=== PATIENT | male | born 1975 | race Caucasian/White ===

== ENCOUNTER 2017-09-18 15:51 | Emergency (ER) | payer BC ==
[~2017-09-18] VITALS: Ht 180.3 cm; Wt 95.0 kg
[~2017-09-18 15:51] MED LIST: CRTOTS OP
[2017-09-18 15:57] VITALS: TEMP 37.5; Ht 180.3 cm; Wt 95.0 kg
[2017-09-18] MEDS ORDERED: ONDANSETRON INJ 2 MG/ML 2 ML VIAL IV STA (16:35)
[2017-09-18] MEDS ORDERED: SODIUM CHLORIDE 0.9% 1000ML 1,000 ML IV STA (16:35)
--- NOTE | 2017-09-18 16:51 | EMERGENCY ROOM VISIT NOTE ---
History Report prepared by Ac: Delon Fernandez Under the Supervision of: Dr. Elaine Trevino M.D. First contact with patient: 16:21 Chief Complaint: ABDOMINAL PAIN Stated Complaint: STOMACH PAIN History of Present Illness The patient is a 42 year old male who presents to the Emergency Room with complaints of intermittent abdominal pain that started 24 hours ago. He says that the pain was on the left side, but has since moved to the right, and there is no pain currently. He rates his worst pain as a 3 or 4 out of 10 in severity , and the pain made him have trouble sleeping last night. The patient notes that nothing makes the pain worse. The patient denies any vomiting or diarrhea. He says that he ate around 2 hours ago, but had not eaten anything before that all day. He adds that his urine is looking a bit dark. The patient notes no abdominal surgeries. He says that he has not had a bowel movement in the past day or so, and he normally has regular bowel movements. The patient says that he has never had a colonoscopy, and he has no chronic medical problems. He notes that he has about 3 drinks of alcohol per day. Source of History: patient Onset: 24 hours ago Position: abdomen Symptom Intensity: at worst a 3 or 4 out of 10 Timing: intermittent Associated Symptoms: No vomiting, No diarrhea Note: Associated symptoms: Urine looking a bit dark. Review of Systems See HPI for pertinent positives & negatives. A total of 10 systems reviewed and were otherwise negative. Past Medical & Surgical Medical Problems: (1) No chronic diseases present Family History Cancer Heart disease Hypertension Social History Smoking Status: Never Smoker Alcohol Use: other (3 drinks per day) Marital Status: Housing Status: lives with significant other Occupation Status: employed Current/Historical Medications No Active Prescriptions or Reported Meds Allergies Coded Allergies: No Known Allergies (Unverified , 05/30/11) Physical Exam Vital Signs Date Time Temp Pulse Resp B/P (MAP) Pulse Ox O2 Delivery O2 Flow Rate FiO2 09/18/17 19:42 88 16 112/73 97 09/18/17 18:36 90 18 107/59 96 Room Air 09/18/17 15:57 37.5 100 20 101/55 95 Room Air Physical Exam Vital signs reviewed. General: Well-appearing 42 year old male, in no significant distress. HEENT: No scleral icterus, PERRLA, neck supple. Atraumatic. Cardiovascular: Regular rate and rhythm, no extra sounds. Pulmonary: Clear to auscultation bilaterally, normal work of breathing. Abdomen: Tender to bilateral lower quadrants, positive guarding. Soft, nondistended, positive bowel sounds. Musculoskeletal: Atraumatic, no peripheral edema. Neurologic: Patient awake alert and oriented x 3 Skin: Warm, dry, no rash Medical Decision & Procedures ER Provider Diagnostic Interpretation: CT results as stated below per my review and radiologist interpretation: CT OF THE ABDOMEN AND PELVIS WITH CONTRAST CLINICAL HISTORY: Lower abdominal pain. COMPARISON STUDY: None. TECHNIQUE: Following IV administration of 92 mL of Optiray-320, axial images of the abdomen and pelvis were obtained from the lung bases to the proximal femurs. Images were reviewed in the axial, sagittal, and coronal planes. IV contrast was administered without complication. A dose lowering technique was utilized adhering to the principles of ALARA. CT DOSE: 880.05 mGycm FINDINGS: The liver, spleen, adrenal glands and kidneys are normal. There is no hydronephrosis. There is no biliary or pancreatic ductal dilatation. The pancreatic neck, body and tail are not visualized. This suggests agenesis of the dorsal pancreas. The caliber of small and large bowel is normal. The appendix is normal. There is extensive left colon diverticulosis. There is circumferential moderate wall thickening of the proximal sigmoid colon with moderate pericolonic infiltration and fluid. This represents acute diverticulitis. There is no free air or abscess. There is trace fluid within the pelvis. There is no lymphadenopathy. No suspicious skeletal lesions are present. IMPRESSION: 1. Acute sigmoid diverticulitis. Moderate pericolonic infiltration and a small amount of fluid with moderate sigmoid colon wall thickening. No free air or abscess. 2. 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 Electronically signed by: Hossein Mauro M.D. 09/18/2017 7:02 PM Dictated Date/Time: 09/18/2017 6:57 PM Laboratory Results 09/18/17 16:10 Red Blood Count 4.29, Mean Corpuscular Volume 84.8, Mean Corpuscular Hemoglobin 31.0, Mean Corpuscular Hemoglobin Concent 36.5, Mean Platelet Volume 10.1, Neutrophils (%) (Auto) 84.0, Lymphocytes (%) (Auto) 7.6, Monocytes (%) (Auto) 7.9, Eosinophils (%) (Auto) 0.2, Basophils (%) (Auto) 0.1, Neutrophils # (Auto) 10.24, Lymphocytes # (Auto) 0.93, Monocytes # (Auto) 0.96, Eosinophils # (Auto) 0.03, Basophils # (Auto) 0.01 09/18/17 16:10 Test 09/18/17 00:00 09/18/17 16:10 09/18/17 17:08 Urine Color DK YELLOW Urine Appearance CLEAR (CLEAR) Urine pH 7.0 (4.5-7.5) Urine Specific [place] 1.022 (1.000-1.030) Urine Protein NEG (NEG) Urine Glucose (UA) NEG (NEG) Urine Ketones TRACE (NEG) Urine Occult Blood NEG (NEG) Urine Nitrite NEG (NEG) Urine Bilirubin NEG (NEG) Urine Urobilinogen NEG (NEG) Urine Leukocyte Esterase NEG (NEG) White Blood Count 12.20 K/uL (4.8-10.8) Red Blood Count 4.29 M/uL (4.7-6.1) Hemoglobin 13.3 g/dL (14.0-18.0) Hematocrit 36.4 % (42-52) Mean Corpuscular Volume 84.8 fL (80-100) Mean Corpuscular Hemoglobin 31.0 pg (25-34) Mean Corpuscular Hemoglobin Concent 36.5 g/dl (32-36) Platelet Count 273 K/uL (130-400) Mean Platelet Volume 10.1 fL (7.4-10.4) Neutrophils (%) (Auto) 84.0 % Lymphocytes (%) (Auto) 7.6 % Monocytes (%) (Auto) 7.9 % Eosinophils (%) (Auto) 0.2 % Basophils (%) (Auto) 0.1 % Neutrophils # (Auto) 10.24 K/uL (1.4-6.5) Lymphocytes # (Auto) 0.93 K/uL (1.2-3.4) Monocytes # (Auto) 0.96 K/uL (0.11-0.59) Eosinophils # (Auto) 0.03 K/uL (0-0.5) Basophils # (Auto) 0.01 K/uL (0-0.2) RDW Standard Deviation 38.7 fL (36.4-46.3) RDW Coefficient of Variation 12.6 % (11.5-14.5) Immature Granulocyte % (Auto) 0.2 % Immature Granulocyte # (Auto) 0.03 K/uL (0.00-0.02) Anion Gap 6.0 mmol/L (3-11) Est Creatinine Clear Calc Drug Dose 115.5 ml/min Estimated GFR () 109.8 Estimated GFR (Non- 94.7 BUN/Creatinine Ratio 13.2 (10-20) Calcium Level 8.7 mg/dl (8.5-10.1) Total Bilirubin 0.8 mg/dl (0.2-1) Direct Bilirubin 0.2 mg/dl (0-0.2) Aspartate Amino Transf (AST/SGOT) 9 U/L (15-37) Alanine Aminotransferase (ALT/SGPT) 26 U/L (12-78) Alkaline Phosphatase 71 U/L (45-117) Total Protein 7.5 gm/dl (6.4-8.2) Albumin 3.9 gm/dl (3.4-5.0) Lipase 78 U/L (73-393) Total Creatine Kinase 78 U/L (39-308) Laboratory results per my review. Medications Administered Medications (Trade) Dose Ordered Sig/Ashleigh Route Start Time Stop Time Status Last Admin Dose Admin Sodium Chloride 1,000 ml @ 999 mls/hr Q1H1M STAT IV 09/18/17 16:35 09/18/17 17:35 DC 09/18/17 18:31 999 MLS/HR Ondansetron HCl (Zofran Inj) 4 mg NOW STAT IV 09/18/17 16:35 09/18/17 16:37 DC 09/18/17 18:30 4 MG Amoxicillin/ Clavulanate Potassium (Augmentin Tab) 875 mg ONE ONCE PO 09/18/17 19:30 09/18/17 19:31 DC 09/18/17 19:33 875 MG Acetaminophen/ Hydrocodone Bitart (Brandywine 5/325 Tab) 1 tab NOW STAT PO 09/18/17 19:19 09/18/17 19:21 DC 09/18/17 19:34 1 TAB Acetaminophen/ Hydrocodone Bitart (Br[place]wine 5/325mg Home Pack) 1 homepack UD ONCE PO 09/18/17 19:45 09/18/17 19:46 DC 09/18/17 19:53 1 [facility] ED Course 1635: Ordered Zofran Inj 4 mg IV, NSS 1000 ml @ 999 mls/hr IV. 164: Past medical records reviewed. The patient was evaluated in room C4. A complete history and physical examination was performed. 1700: Ordered Morphine Sulfate Inj 4 mg IV. 1918: Ordered Brandywine 5/325 Tab 1 tab PO. 1927: Upon reevaluation, the patient appeared to have improvement of his symptoms. I discussed findings with him. He verbalized agreement of the treatment plan. He was discharged home. 1929: Ordered Augmentin Tab 875 mg PO. Medical Decision Differential diagnosis: Etiologies such as appendicitis, diverticulitis, PUD, biliary pathology, UTI, pancreatitis, obstruction, mesenteric ischemia, aortic pathology, infections, inflammatory bowel disease, renal colic, as well as others were entertained. This patient was evaluated and appeared to be in no significant distress. IV access was obtained and laboratory work was drawn. Patient was hydrated with normal saline solution and IV Zofran for his discomfort. The patient declined the IV morphine that was ordered. Laboratory work reveals a mildly elevated white blood cell count. CT scan abdomen and pelvis is consistent with an acute diverticulitis. There is no evidence of abscess or perforation. The patient does drink 3 alcoholic drinks a day. Flagyl was felt not to be the best option for this patient. He was started on Augmentin 875 mg twice a day for 7 days. He will follow-up with his PCP and likely gastroenterology secondarily. He will return to the ER for worsening of symptoms or any medical concerns. Medication Reconcilliation Current Medication List: was personally reviewed by me Blood Pressure Screening Patient's blood pressure: Normal blood pressure Impression Primary Impression: Diverticulitis Scribe Attestation The scribe's documentation has been prepared under my direction and personally reviewed by me in its entirety. I confirm that the note above accurately reflects all work, treatment, procedures, and medical decision making performed by me. Departure Information Dispostion Home / Self-Care Prescriptions No Active Prescriptions or Reported Meds Referrals Kam Gamez III, CRNP (PCP) Forms Call Back Authorization, HOME CARE DOCUMENTATION FORM, IMPORTANT VISIT INFORMATION Patient Instructions My [facility] Additional Instructions Diagnosis: Diverticulitis Drink plenty of clear fluids. Low fiber diet for 1 week. Augmentin 875 mg twice daily for 7 days. Follow up with PCP and seek GI referral for colonoscopy once improved. Brandywine 1 tab every 6 hours as needed for pain, do not drive or take tylenol with this medication. Tylenol 650 mg every 6 hours as needed for pain thereafter. Return to the ED for worsening of symptoms or any medical concerns.
[2017-09-18 16:58] LABS: HEMATOCRIT 36.4 % (42-52); MEAN CELL VOLUME 84.8 fL (80-100); MEAN CORPUSCULAR HGB CONC 36.5 g/dl (32-36); MEAN PLATELET VOLUME 10.1 fL (7.4-10.4); PLATELET COUNT 273 K/uL (130-400); RED BLOOD COUNT 4.29 M/uL (4.7-6.1)
[2017-09-18] MEDS ORDERED: MoRPHine SULFATE 4 MG/ML 1 ML CARP\\VIAL IV STA (17:01)
[2017-09-18 17:10] LABS: BUN/CREATININE RATIO 13.2 (10-20); CALCIUM 8.7 mg/dl (8.5-10.1); CREATININE 0.98 mg/dl (0.60-1.40); POTASSIUM 3.7 mmol/L (3.5-5.1)
[2017-09-18 17:15] LABS: BASO % 0.1 %; BASO ABS # 0.01 K/uL (0-0.2); COMPLETE YES; EOS % 0.2 %; IG% 0.2 %; LYMPH % 7.6 %; LYMPH ABS # 0.93 K/uL (1.2-3.4); MONO % 7.9 %
[2017-09-18] MEDS ORDERED: OPTIRAY 320 IV PRN (17:15)
[2017-09-18 17:57] LABS: URINE APPEARANCE CLEAR (CLEAR); URINE BILIRUBIN NEG (NEG); URINE COLOR DK YELLOW; URINE NITRITE NEG (NEG); URINE SPECIFIC GRAVITY 1.022 (1.000-1.030); UROBILINOGEN NEG (NEG); ZZUR CULT IF INDIC CLEAN CATCH NO
[2017-09-18 18:01] LABS: MANUAL MICROSCOPIC REQUIRED? NO; REVIEW REQ? NO
--- NOTE | 2017-09-18 19:03 | DIAGNOSTIC IMAGING REPORT ---
CT OF THE ABDOMEN AND PELVIS WITH CONTRAST CLINICAL HISTORY: Lower abdominal pain. COMPARISON STUDY: None. TECHNIQUE: Following IV administration of 92 mL of Optiray-320, axial images of the abdomen and pelvis were obtained from the lung bases to the proximal femurs. Images were reviewed in the axial, sagittal, and coronal planes. IV contrast was administered without complication. A dose lowering technique was utilized adhering to the principles of ALARA. CT DOSE: 880.05 mGycm FINDINGS: The liver, spleen, adrenal glands and kidneys are normal. There is no hydronephrosis. There is no biliary or pancreatic ductal dilatation. The pancreatic neck, body and tail are not visualized. This suggests agenesis of the dorsal pancreas. The caliber of small and large bowel is normal. The appendix is normal. There is extensive left colon diverticulosis. There is circumferential moderate wall thickening of the proximal sigmoid colon with moderate pericolonic infiltration and fluid. This represents acute diverticulitis. There is no free air or abscess. There is trace fluid within the pelvis. There is no lymphadenopathy. No suspicious skeletal lesions are present. IMPRESSION: 1. Acute sigmoid diverticulitis. Moderate pericolonic infiltration and a small amount of fluid with moderate sigmoid colon wall thickening. No free air or abscess. 2. 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 Electronically signed by: Hossein Mauro M.D. 09/18/2017 7:02 PM Dictated Date/Time: 09/18/2017 6:57 PM
[2017-09-18] MEDS ORDERED: HYDROCODONE/ACETAMOPHEN 5/325MG TAB PO STA (19:19)
[2017-09-18] MEDS ORDERED: AMOXICILLIN/CLAVULANATE TAB 875 MG TAB PO ONE (19:30)
[2017-09-18 19:42] VITALS: BP 112/73; PULSE 88; O2SAT 97
[2017-09-18] MEDS ORDERED: NORCO 5/325MG HOME PACK PO ONE (19:45)
== END 2017-09-18 19:43 | disposition home or self-care (01) ==
LOC: C.EDB 15:53 → C.EDC 19:43
DX: K57.33 Diverticulitis of large intestine without perforation or abscess with bleeding (principal); Z80.9 Family history of malignant neoplasm, unspecified; Z82.49 Family history of ischemic heart disease and other diseases of the circulatory system

== ENCOUNTER → 2017-09-22 | Outpatient (CLI) | payer BC ==
[2017-09-22 13:59] LABS: ALT/SGPT 30 U/L (12-78); AST/SGOT 11 U/L (15-37); BLOOD UREA NITROGEN 15 mg/dl (7-18); CALCIUM 8.9 mg/dl (8.5-10.1); CARBON DIOXIDE 27 mmol/L (21-32); CHLORIDE 105 mmol/L (98-107); CREATININE 0.76 mg/dl (0.60-1.40); GLUCOSE 97 mg/dl (70-99); POTASSIUM 4.1 mmol/L (3.5-5.1); SODIUM 139 mmol/L (136-145)
[2017-09-22 14:02] LABS: ALB/GLOB RATIO 0.9 (0.9-2); ALKALINE PHOSPHATASE 60 U/L (45-117); CHOLESTEROL 183 mg/dl (0-200); CHOLESTEROL/HDL RATIO 4.2; HDL CHOLESTEROL 44 mg/dl; LDL CHOLESTEROL CALCULATED 124 mg/dl; TRIGLYCERIDES 77 mg/dl (0-150); VERY LOW DENSITY LIPOPROT CALC 15 mg/dl
== END | disposition home or self-care (01) ==
LOC: C.LAB1850 11:51
PROVIDERS: ATTEND Nurse Practitioner Family
DX: Z13.220 Encounter for screening for lipoid disorders (principal)

== ENCOUNTER → 2018-04-16 | Outpatient (CLI) | payer BC | END | disposition home or self-care (01) | LOC: C.LABSPEC 11:09 | PROVIDERS: ATTEND Nurse Practitioner Family | DX: R10.30 Lower abdominal pain, unspecified (principal) ==